=== PATIENT | female | born 1960 | race Caucasian/White ===

== ENCOUNTER → 2020-11-02 | Outpatient (CLI) | payer OTHER | LOC: MAMO 10:09 | DX: Z12.31 Encounter for screening mammogram for malignant neoplasm of breast (principal) | CPT/HCPCS: 77063; 77067 ==

== ENCOUNTER → 2020-11-16 | Outpatient (CLI) | payer OTHER | LOC: KOH-I 11-09 09:30 | DX: J32.9 Chronic sinusitis, unspecified (principal) | CPT/HCPCS: 70486 ==

== ENCOUNTER → 2021-04-13 | Outpatient (CLI) | payer OTHER | LOC: EXRD 12:53 | DX: Z78.0 Asymptomatic menopausal state (principal); M81.0 Age-related osteoporosis without current pathological fracture | CPT/HCPCS: 77080 ==

== ENCOUNTER 2021-07-27 12:26 | Observation (INO) | payer OTHER ==
[~2021-07-27] VITALS: Ht 160 cm; Wt 89.8 kg
[2021-07-27 12:42] LABS: HEMOGLOBIN 13.2 gm/dl (12.3-15.3); RED BLOOD COUNT 4.31 M/UL (4.00-5.10); WHITE BLOOD COUNT 5.3 K/UL (4.5-11.0)
[2021-07-27 13:05] LABS: BUN/CREATININE RATIO 22 (0-10)
[2021-07-27] MEDS ORDERED: DULOXETINE HCL30 MG PO (15:03)
[2021-07-27] MEDS ORDERED: LANSOPRAZOLE30 MG PO (15:06)
[2021-07-27] MEDS ORDERED: MONTELUKAST SOD10 MG PO (15:07)
[2021-07-27] MEDS ORDERED: BACLOFEN10 MG PO (15:09)
[2021-07-27] MEDS ORDERED: LISINOPRIL-HCT1 EAC1 PO (15:10)
[2021-07-27] MEDS ORDERED: METFORMIN HCL500 MG PO (15:13)
[2021-07-27] MEDS ORDERED: VITAMIN D350 MC3 PO (15:14)
[2021-07-27] MEDS ORDERED: ALENDRONATE SOD70 MG PO (15:14)
[2021-07-27] MEDS ORDERED: DIAZEPAM5 MG PO ×2 (15:16→15:18)
[2021-07-28 03:26] LABS: BUN/CREATININE RATIO 23 (0-10)
[2021-07-28 03:31] LABS: HEMOGLOBIN 13.6 gm/dl (12.3-15.3); RED BLOOD COUNT 4.53 M/UL (4.00-5.10)
[2021-07-28 03:51] LABS: WHITE BLOOD COUNT 8.6 K/UL (4.5-11.0)
[2021-07-29] MEDS ORDERED: ATORVASTATIN CA10 MG PO (15:13)
[2021-07-29] MEDS ORDERED: ASPIRIN EC81 MG PO (15:13)
== END 2021-07-29 18:15 | disposition home or self-care (01) ==
LOC: ER1 12:26 → CDU 13:44 → M/S 15:59
PROVIDERS: Emergency Medicine; Physician Assistant Medical; ADMIT Internal Medicine
DX: R42 Dizziness and giddiness (principal); E11.9 Type 2 diabetes mellitus without complications; K21.9 Gastro-esophageal reflux disease without esophagitis; I10 Essential (primary) hypertension
CPT/HCPCS: ECHO; 70450; 70496; 70498; 70551; 71045; 80048; 80053; 80061; 82550; 82553; 82962; 83036; 83735; 84484; 85025; 85027; 85610; 85730; 93005; 93306; 96374; 96375; 99285; G0378; J1200; J2405; J2930; Q9967